=== PATIENT | female | born 1985 | race Caucasian/White ===

== ENCOUNTER → 2020-12-24 15:54 | Outpatient (CLI) | payer BC, SELFPAY ==
--- NOTE | ~2020-12-24 | US_ITS ---
US pelvic complete w TV DATE: 12/24/2020 16:12 INDICATION: Dysmenorrhea TECHNIQUE: Real-time imaging via transabdominal and transvaginal approaches COMPARISON: None FINDINGS: The uterus measures 7.1 cm height, up to 4.4 cm anteroposterior dimension. The central endo metrial echo complex measures up to 12.7 mm anteroposterior dimension. Right ovary measures 2.9 x 2 x 2.6 cm, left ovary measures 2.5 x 1.2 x 1 cm. There is vascular flow t o both ovaries. IMPRESSION: Central endometrial echo complex measures up to 12.7 mm. Reviewed, dictated and finalized at [facility]. Reviewed, dictated and finalized at [facility].
== END ==
PROVIDERS: Visit Provider Family Medicine
DX: N94.6 Dysmenorrhea, unspecified (principal)
CPT/HCPCS: 76830; 76856

== ENCOUNTER → 2021-02-22 02:16 | Outpatient (CLI) | payer BC, SELFPAY ==
[2021-02-22 19:37] LABS: SARS-CoV-2 RNA PCR Negative
== END ==
PROVIDERS: PCP Family Medicine; Visit Provider Family Medicine
DX: Z20.822 Contact with and (suspected) exposure to COVID-19 (principal); R05 Cough
CPT/HCPCS: C9803; U0003; U0005

== ENCOUNTER → 2021-12-20 08:18 | Outpatient (CLI) | payer BC, SELFPAY ==
--- NOTE | ~2021-12-20 | US_ITS ---
EXAMINATION: US right upper quadrant EXAM DATE: 12/20/2021 09:06 INDICATION: Non-alcoholic fatty liver . TECHNIQUE: Multiple grayscale and Doppler images of the abdomen right upper quadrant were obtained (b y a technologist who performed the scan) and subsequently reviewed. There is no prior study for shahnaz turner. FINDINGS: The pancreatic head and body are normal in appearance. The pancreatic tail is not visualized. The l iver has normal echogenicity and contour. There are no focal liver lesions identified. There is no evidence of intrahepatic biliary duct dilation. Portal venous flow was seen in the hepatopedal, nor mal direction and has normal Doppler waveform. No right-sided hydronephrosis. Common bile duct measures 6 mm, which is normal. The gallbladder wall is normal in thickness, with ex pected amount of distention. No sonographic evidence of pericholecystic fluid. There is no cholelit hiases. Technologist performing exam reports patient did not demonstrate sonographic Lopez's sign. Please note that this sign is less reliable in patients who have received pain medication. IMPRESSION: 1. Unremarkable abdominal ultrasound exam. Reviewed, dictated and finalized at [facility]. N RECOVERY COORDINATOR
== END ==
PROVIDERS: PCP Family Medicine; Visit Provider Family Medicine
DX: K76.0 Fatty (change of) liver, not elsewhere classified (principal)
CPT/HCPCS: 76705